=== PATIENT | female | born 1940 | race Caucasian/White ===

== ENCOUNTER 2016-11-28 20:02 | Emergency (ER) | payer MEDICARE, OTHER ==
[~2016-11-28] VITALS: Ht 144.8 cm; Wt 63.5 kg
[~2016-11-28 20:02] MED LIST: ASPIRIN81 M1 PO; FOSAMAX70 MG PO; LOPRESSOR50 MG PO; ZESTRIL30 MG PO
[2016-11-28 20:11] VITALS: BP 181/74
--- NOTE | 2016-11-28 20:59 | NUR ---
PATIENT PRESENTS TO ED WITH C/O HTN . PT STATES MEDICAL HX OF HTN, ENLARGED HEART. PT TAKES ASA, LISINOPRIL, AND METROPOLOL AT HOME . DENIES N/V/D; SKIN IS PINK/WARM/DRY; AAOX4 WITH EVEN AND STEADY GAIT; LUNGS CLEAR BL; HR EVEN AND REGULAR; PT DENIES ANY FEVER, CP, SOB, OR COUGH AT THIS TIME; PATIENT STATES PAIN OF 0/10 AT THIS TIME; VSS; PATIENT POSITIONED FOR COMFORT; HOB ELEVATED; BEDRAILS UP X2; BED DOWN. ER MD MADE AWARE OF PT STATUS.
--- NOTE | 2016-11-28 20:59 | NUR ---
TO ER BED 5
[2016-11-28 21:30] VITALS: BP 181/74
--- NOTE | 2016-11-28 21:30 | NUR ---
Patient discharged with v/s stable. Written and verbal after care instructions given and explained. Patient verbalized understanding. Ambulatory with steady gait. All questions addressed prior to discharge. Advised to follow up with PMD.
== END 2016-11-28 21:30 | disposition home or self-care (01) ==
LOC: MED 20:02
DX: I10 Essential (primary) hypertension (principal); M54.2 Cervicalgia; Z88.8 Allergy status to other drugs, medicaments and biological substances